=== PATIENT | female | born 1945 | race Caucasian/White ===

== ENCOUNTER 2019-10-21 16:04 | Inpatient (IN) | payer MEDICARE, OTHER ==
[~2019-10-21] VITALS: Ht 149.9 cm; Wt 68.5 kg
[2019-10-21] MEDS ORDERED: SODIUM CHLORIDE 0.9% 1,000 ML IV ONE (17:15)
[2019-10-21 17:35] LABS: BASOPHILS % 0.2 % (0.0-2.0); EOSINOPHILS % 0.1 % (0.0-5.0); LYMPHOCYTES % 18.6 % (20.0-50.0); MEAN CORPUSCULAR HEMOGLOBIN 31.5 pg (28.0-32.0); MEAN CORPUSCULAR VOLUME 92.3 fL (81.0-99.0); MEAN PLATELET VOLUME 9.2 fl (7.4-10.4); MONOCYTES % 4.7 % (2.0-8.0); NEUTROPHILS % 76.4 % (40.0-76.0); PLATELET 264 x1000/uL (130-400); RED BLOOD CELL COUNT 2.13 mill/uL (4.2-5.4); RED CELL DISTRIBUTION WIDTH 15.8 % (11.6-14.6)
[2019-10-21 17:39] LABS: HEMATOCRIT. 19.7 % (36.0-48.0); HEMOGLOBIN. 6.7 g/dL (12.0-16.0)
[2019-10-21 17:41] LABS: INR 1.8; PROTHROMBIN TIME 19.5 sec (9.6-11.0)
[2019-10-21 17:44] LABS: CHLORIDE 91 mEq/L (98-107)
[2019-10-21] MEDS ORDERED: SODIUM CHLORIDE 0.9% 1000ML BAG (SEPSIS BOLUS) IV ONE (18:00)
[2019-10-21] MEDS ORDERED: POTASSIUM CHLORIDE 20MEQ TABLET SR PO ONE (18:00)
[2019-10-21] MEDS ORDERED: PIPERACILLIN/TAZ 3.375G PREMIX 50 ML IV ONE (18:00)
[2019-10-21] MEDS ORDERED: KCL 10MEQ/50ML PREMIX 50 ML IV ONE (18:00)
[2019-10-21 18:16] LABS: CLARITY URINE CLEAR (CLEAR); COLOR URINE YELLOW (YELLOW); KETONES URINE NEGATIVE (NEGATIVE); LEUKOCYTE ESTERASE URINE NEGATIVE (NEGATIVE); NITRITE URINE NEGATIVE (NEGATIVE); OCCULT BLOOD URINE NEGATIVE (NEGATIVE); PROTEIN URINE NEGATIVE (NEGATIVE); SPECIFIC GRAVITY URINE 1.012 (1.005-1.030); UROBILINOGEN URINE 0.2 E.U./dL (0.2-1.0)
[2019-10-21] MEDS ORDERED: MAGNESIUM/ALUMINUM HYDROXIDE/SIMETHICONE 30ML UDC PO PRN (19:30)
[2019-10-21] MEDS ORDERED: GUAIFENESIN 200MG/10ML SUGAR FREE UDC PO PRN (19:30)
[2019-10-21] MEDS ORDERED: NITROGLYCERIN 0.4MG TABLET SL SL PRN (19:30)
[2019-10-21] MEDS ORDERED: IPRATROPIUM/ALBUTEROL 0.5-3(2.5)MG/3ML NEB NEB PRN (19:30)
[2019-10-21] MEDS ORDERED: DOCUSATE SODIUM 100MG CAPSULE PO PRN (19:30)
[2019-10-21] MEDS ORDERED: MAGNESIUM 1 G PREMIX 100 ML IV ONE (20:15)
[2019-10-21 20:55] LABS: FOLIC ACID (FOLATE) SERUM 19.3 ng/mL (>5.38)
[2019-10-21] MEDS ORDERED: POTASSIUM CHLORIDE 20MEQ TABLET SR PO NR (21:39)
[2019-10-21 22:50] VITALS: BP 106/62
[2019-10-21] MEDS ORDERED: MAGNESIUM 4 G PREMIX 100 ML IV NR (23:00)
[2019-10-21] MEDS ORDERED: PHYTONADIONE 10 MG in DEXTROSE 5% WATER 50 ML IV NR (23:00)
[2019-10-21] MEDS ORDERED: METRONIDAZOLE 500 MG PREMIX 100 ML IV SCH (23:00)
[2019-10-21] MEDS ORDERED: KCL 20MEQ/100ML PREMIX 100 ML IV NR (23:00)
[2019-10-21] MEDS ORDERED: PANTOPRAZOLE 80 MG in SODIUM CHLORIDE 0.9% 100 ML IV SCH (23:00)
[2019-10-21 23:10] VITALS: BP 106/62
[2019-10-22] VITALS (19 sets, daily range): BP systolic 113–166; BP diastolic 42–103
[2019-10-22] MEDS ORDERED: LEVOFLOXACIN 500MG PREMIX 100 ML IV SCH
[2019-10-22] MEDS: ASCORBIC ACID 500 MG TABLET PO SCH ×3 (01:44→21:26)
[2019-10-22] MEDS: ZOLPIDEM TARTRATE 5MG TABLET PO PRN ×2 (01:44→21:26)
[2019-10-22] MEDS: PANTOPRAZOLE 80 MG in SODIUM CHLORIDE 0.9% 100 ML IV SCH ×2 (01:53→11:00)
[2019-10-22] MEDS: OCTREOTIDE 1,000 MCG in SODIUM CHLORIDE 0.9% 98 ML IV SCH (01:55)
[2019-10-22] MEDS: DEXT 5%/0.9% NACL KCL 20MEQ/L 1,000 ML IV SCH ×2 (02:00→19:00)
[2019-10-22] MEDS: ACETAMINOPHEN 325MG TABLET PO PRN (03:14)
[2019-10-22 06:12] LABS: CHLORIDE 100 mEq/L (98-107)
[2019-10-22 06:28] LABS: BASOPHILS % 0.2 % (0.0-2.0); EOSINOPHILS % 0.6 % (0.0-5.0); HEMATOCRIT. 23.8 % (36.0-48.0); HEMOGLOBIN. 8.2 g/dL (12.0-16.0); LYMPHOCYTES % 17.3 % (20.0-50.0); MEAN CORPUSCULAR HEMOGLOBIN 30.5 pg (28.0-32.0); MEAN CORPUSCULAR VOLUME 88.9 fL (81.0-99.0); MEAN PLATELET VOLUME 9.4 fl (7.4-10.4); MONOCYTES % 6.3 % (2.0-8.0); NEUTROPHILS % 75.6 % (40.0-76.0); PLATELET 195 x1000/uL (130-400); RED BLOOD CELL COUNT 2.67 mill/uL (4.2-5.4); RED CELL DISTRIBUTION WIDTH 16.3 % (11.6-14.6)
[2019-10-22 06:31] LABS: PHOSPHORUS 3.2 mg/dL (2.5-4.9)
[2019-10-22] MEDS ORDERED: METF-816 MT (08:00)
[2019-10-22] MEDS ORDERED: TLXL5 MT (08:00)
[2019-10-22] MEDS ORDERED: LOSA100T32 PO (08:00)
[2019-10-22] MEDS ORDERED: METF500T MT (08:00)
[2019-10-22] MEDS ORDERED: CARV25TA47 PO (08:00)
[2019-10-22] MEDS ORDERED: OMEP10CA5 MT (08:00)
[2019-10-22] MEDS ORDERED: LEVO100T PO (08:00)
[2019-10-22] MEDS ORDERED: AMLO1ORA PO (08:00)
[2019-10-22] MEDS ORDERED: PARO25TA15 MT (08:00)
[2019-10-22] MEDS ORDERED: LOVA10TA54 MT (08:00)
[2019-10-22] MEDS ORDERED: ALBU90AE INH (08:00)
[2019-10-22] MEDS ORDERED: HYDR25TA MT (08:00)
[2019-10-22] MEDS ORDERED: CLON1TAB12 MT (08:00)
[2019-10-22] MEDS ORDERED: CEFTRIAXONE 1 G PREMIX 50 ML IV SCH (09:00)
[2019-10-22] MEDS ORDERED: POTASSIUM CHLORIDE IV NR (09:00)
[2019-10-22] MEDS ORDERED: WATER IV NR (09:00)
[2019-10-22] MEDS ORDERED: DEXTROSE 5% IV NR (09:00)
[2019-10-22] MEDS: METRONIDAZOLE 500 MG PREMIX 100 ML IV SCH ×2 (09:55→18:24)
[2019-10-22 12:25] LABS: HEMATOCRIT 26.8 % (36.0-48.0); HEMOGLOBIN 9.4 g/dL (12.0-16.0)
[2019-10-22] MEDS: FERROUS SULFATE 325MG TABLET PO SCH (14:00)
[2019-10-22] MEDS: LEVOFLOXACIN 250MG PREMIX 50 ML IV SCH (21:25)
[2019-10-22] MEDS: PANTOPRAZOLE SODIUM 40 MG/VIAL IV SCH (21:25)
[2019-10-23] VITALS (13 sets, daily range): BP systolic 128–163; BP diastolic 62–87
[2019-10-23] MEDS: METRONIDAZOLE 500 MG PREMIX 100 ML IV SCH ×3 (02:06→17:28)
[2019-10-23] MEDS: DEXT 5%/0.9% NACL KCL 20MEQ/L 1,000 ML IV SCH (05:47)
[2019-10-23 06:42] LABS: BASOPHILS % 0.5 % (0.0-2.0); EOSINOPHILS % 3.6 % (0.0-5.0); HEMOGLOBIN. 9.4 g/dL (12.0-16.0); LYMPHOCYTES % 27.8 % (20.0-50.0); MEAN CORPUSCULAR HEMOGLOBIN 31.8 pg (28.0-32.0); MEAN CORPUSCULAR VOLUME 91.7 fL (81.0-99.0); MEAN PLATELET VOLUME 8.6 fl (7.4-10.4); MONOCYTES % 8.7 % (2.0-8.0); NEUTROPHILS % 59.4 % (40.0-76.0); PLATELET 165 x1000/uL (130-400); RED BLOOD CELL COUNT 2.94 mill/uL (4.2-5.4); RED CELL DISTRIBUTION WIDTH 16.4 % (11.6-14.6)
[2019-10-23 06:48] LABS: CHLORIDE 113 mEq/L (98-107)
[2019-10-23 06:58] LABS: PHOSPHORUS 1.5 mg/dL (2.5-4.9)
[2019-10-23] MEDS: PANTOPRAZOLE SODIUM 40 MG/VIAL IV SCH ×2 (09:01→20:05)
[2019-10-23] MEDS: CEFTRIAXONE 1 G PREMIX 50 ML IV SCH (09:02)
[2019-10-23] MEDS: ASCORBIC ACID 500 MG TABLET PO SCH ×2 (09:02→20:05)
[2019-10-23] MEDS: FERROUS SULFATE 325MG TABLET PO SCH (09:02)
[2019-10-23] MEDS ORDERED: LACTULOSE 20G/30ML UDC PO SCH (14:00)
[2019-10-23] MEDS ORDERED: LACTULOSE 20G/30ML UDC PO PRN (14:00)
[2019-10-23] MEDS ORDERED: POTASSIUM PHOS,M-BASIC-D-BASIC 15 MMOL in DEXT 5% WATER 245 ML IV NR (14:00)
[2019-10-23] MEDS: ZOLPIDEM TARTRATE 5MG TABLET PO PRN (20:05)
[2019-10-23] MEDS: LEVOFLOXACIN 250MG PREMIX 50 ML IV SCH (20:06)
[2019-10-23] MEDS: OCTREOTIDE 1,000 MCG in SODIUM CHLORIDE 0.9% 98 ML IV SCH (20:06)
[2019-10-23 21:16] LABS: INR 1.1
[2019-10-23 21:20] LABS: CHLORIDE 114 mEq/L (98-107)
[2019-10-23] MEDS: DIPHENHYDRAMINE 50MG/ML VIAL IV PRN (22:10)
[2019-10-24] VITALS (12 sets, daily range): BP systolic 150–176; BP diastolic 34–101
[2019-10-24] MEDS: DEXT 5%/0.9% NACL KCL 20MEQ/L 1,000 ML IV SCH ×2 (00:19→09:07)
[2019-10-24] MEDS: METRONIDAZOLE 500 MG PREMIX 100 ML IV SCH ×4 (01:07→18:29)
[2019-10-24] MEDS: DIPHENHYDRAMINE 50MG/ML VIAL IV PRN ×2 (03:26→09:07)
[2019-10-24] MEDS: ONDANSETRON HCL 4MG/2ML INJ IV PRN ×2 (03:26→09:07)
[2019-10-24 06:06] LABS: CHLORIDE 115 mEq/L (98-107)
[2019-10-24 06:11] LABS: BASOPHILS % 0.5 % (0.0-2.0); EOSINOPHILS % 2.4 % (0.0-5.0); HEMATOCRIT. 28.8 % (36.0-48.0); HEMOGLOBIN. 9.9 g/dL (12.0-16.0); LYMPHOCYTES % 27.2 % (20.0-50.0); MEAN CORPUSCULAR HEMOGLOBIN 31.7 pg (28.0-32.0); MEAN CORPUSCULAR VOLUME 92.2 fL (81.0-99.0); MEAN PLATELET VOLUME 7.9 fl (7.4-10.4); MONOCYTES % 9.7 % (2.0-8.0); NEUTROPHILS % 60.2 % (40.0-76.0); PLATELET 197 x1000/uL (130-400); RED BLOOD CELL COUNT 3.12 mill/uL (4.2-5.4); RED CELL DISTRIBUTION WIDTH 16.6 % (11.6-14.6)
[2019-10-24] MEDS: FERROUS SULFATE 325MG TABLET PO SCH (09:01)
[2019-10-24] MEDS: ASCORBIC ACID 500 MG TABLET PO SCH ×2 (09:01→20:20)
[2019-10-24] MEDS: ACETAMINOPHEN 325MG TABLET PO PRN (09:07)
[2019-10-24] MEDS: PANTOPRAZOLE SODIUM 40 MG/VIAL IV SCH ×2 (09:08→20:21)
[2019-10-24] MEDS: CEFTRIAXONE 1 G PREMIX 50 ML IV SCH (09:08)
[2019-10-24] MEDS ORDERED: POTASSIUM CHLORIDE 20MEQ TABLET SR PO NR (11:00)
[2019-10-24] MEDS ORDERED: SORBITOL 70% SOLN 30ML PO NR ×2 (17:00→21:00)
[2019-10-24] MEDS: LEVOFLOXACIN 250MG PREMIX 50 ML IV SCH (20:11)
[2019-10-24] MEDS: CLONIDINE 0.1MG TABLET PO PRN (20:41)
[2019-10-24] MEDS ORDERED: PANTOPRAZOLE SODIUM 40 MG/VIAL IV SCH (21:00)
[2019-10-25] VITALS (16 sets, daily range): BP systolic 107–195; BP diastolic 51–102
[2019-10-25] MEDS: METRONIDAZOLE 500 MG PREMIX 100 ML IV SCH ×3 (02:25→18:22)
[2019-10-25 06:23] LABS: INR 1.1; PARTIAL THROMBOPLASTIN TIME 25.1 sec (23.4-31.0); PROTHROMBIN TIME 11.7 sec (9.6-11.0)
[2019-10-25 06:36] LABS: BASOPHILS % 0.6 % (0.0-2.0); EOSINOPHILS % 1.2 % (0.0-5.0); HEMATOCRIT. 31.8 % (36.0-48.0); HEMOGLOBIN. 10.9 g/dL (12.0-16.0); MEAN CORPUSCULAR HEMOGLOBIN 31.5 pg (28.0-32.0); MEAN PLATELET VOLUME 7.8 fl (7.4-10.4); MONOCYTES % 8.8 % (2.0-8.0); NEUTROPHILS % 76.4 % (40.0-76.0); PLATELET 228 x1000/uL (130-400); RED BLOOD CELL COUNT 3.46 mill/uL (4.2-5.4); RED CELL DISTRIBUTION WIDTH 16.9 % (11.6-14.6)
[2019-10-25] MEDS ORDERED: NA PHOS,M-B/NA PHOS,DI-BA ENEMA 118ML PR NR (08:00)
[2019-10-25] MEDS: CEFTRIAXONE 1 G PREMIX 50 ML IV SCH (08:51)
[2019-10-25] MEDS: ASCORBIC ACID 500 MG TABLET PO SCH ×2 (09:00→14:58)
[2019-10-25] MEDS: FERROUS SULFATE 325MG TABLET PO SCH ×2 (09:00→14:58)
[2019-10-25] MEDS: PANTOPRAZOLE SODIUM 40 MG/VIAL IV SCH (09:33)
[2019-10-25] MEDS ORDERED: AMLODIPINE 5MG TABLET PO SCH (11:00)
[2019-10-25] MEDS ORDERED: HYDRALAZINE HCL 50MG TABLET PO SCH (11:00)
[2019-10-25] MEDS: CLONIDINE 0.1MG TABLET PO PRN (11:30)
[2019-10-25] MEDS ORDERED: MIDAZOLAM HCL 5 MG/5 ML VIAL ONE ×2 (11:46→12:15)
[2019-10-25] MEDS ORDERED: FENTANYL CITRATE/PF 50MCG/ML 2ML VIAL ONE (11:46)
[2019-10-25] MEDS ORDERED: FENTANYL CITRATE/PF 50MCG/ML 2ML VIAL IV PRN (11:51)
[2019-10-25] MEDS ORDERED: MIDAZOLAM HCL 2 MG/2 ML VIAL IV PRN (11:52)
[2019-10-25] MEDS: OCTREOTIDE 1,000 MCG in SODIUM CHLORIDE 0.9% 98 ML IV SCH (14:52)
== END 2019-10-25 19:33 | disposition home or self-care (01) | DRG 377 ==
LOC: ER 16:04 → 5EST 19:05 → EDBD 19:05 → EDBEDREQTM 19:11 → EDBEDREQSVC 19:11 → EDBEDREQ 19:11 → ENRESERV 20:23
PROVIDERS: ADMIT Internal Medicine; ATTEND Internal Medicine
PROC: 30233N1 Transfusion of Nonautologous Red Blood Cells into Peripheral Vein, Percutaneous Approach (ICD-10-PCS; 2019-10-21)
PROC: 30233K1 Transfusion of Nonautologous Frozen Plasma into Peripheral Vein, Percutaneous Approach (ICD-10-PCS; 2019-10-22)
PROC: 0DB78ZX Excision of Stomach, Pylorus, Via Natural or Artificial Opening Endoscopic, Diagnostic (ICD-10-PCS; principal; 2019-10-25)
PROC: 0DJD8ZZ Inspection of Lower Intestinal Tract, Via Natural or Artificial Opening Endoscopic (ICD-10-PCS; 2019-10-25)
DX: K29.71 Gastritis, unspecified, with bleeding (principal); I21.4 Non-ST elevation (NSTEMI) myocardial infarction; G92 Toxic encephalopathy; E43 Unspecified severe protein-calorie malnutrition; E87.1 Hypo-osmolality and hyponatremia; D62 Acute posthemorrhagic anemia; E87.2 Acidosis; D68.9 Coagulation defect, unspecified; K57.31 Diverticulosis of large intestine without perforation or abscess with bleeding; E11.9 Type 2 diabetes mellitus without complications; M48.07 Spinal stenosis, lumbosacral region; E83.51 Hypocalcemia; I10 Essential (primary) hypertension; K55.20 Angiodysplasia of colon without hemorrhage; E87.6 Hypokalemia; F41.9 Anxiety disorder, unspecified; E03.9 Hypothyroidism, unspecified; K21.9 Gastro-esophageal reflux disease without esophagitis; E87.8 Other disorders of electrolyte and fluid balance, not elsewhere classified; E83.42 Hypomagnesemia; K74.60 Unspecified cirrhosis of liver; E78.5 Hyperlipidemia, unspecified; K64.8 Other hemorrhoids; K44.9 Diaphragmatic hernia without obstruction or gangrene; K56.41 Fecal impaction; N28.1 Cyst of kidney, acquired; Z87.11 Personal history of peptic ulcer disease; Z90.49 Acquired absence of other specified parts of digestive tract; Z68.30 Body mass index [BMI] 30.0-30.9, adult
CPT/HCPCS: 36415; 71045; 74018; 74176; 76700; 80048; 80053; 80061; 80076; 81003; 82140; 82248; 82270; 82607; 82746; 83036; 83540; 83550; 83605; 83735; 83880; 84100; 84145; 84443; 84484; 85014; 85018; 85025; 86850; 86900; 86920; 86927; 88305; 88313; 93005; 93306; 93970; 99152; 99153; 99291; C9113; J0696; J1200; J1956; J2250; J2354; J2405; J2543; J3010; J3430; J3475; J3480; J3490; J7030; J7050; J7060; J7070; P9016; P9017; G0500

== ENCOUNTER 2021-10-28 10:54 | Inpatient (IN) | payer OTHER ==
[~2021-10-28] VITALS: Ht 160 cm; Wt 61.7 kg
[~2021-10-28 10:54] MED LIST: ALBU90AE INH; AMLO1ORA PO; CARV25TA47 PO; CLON1TAB12 MT; HYDR25TA MT; LEVO100T PO; LOVA10TA54 MT; METF-874 MT; METF500T MT; OMEP10CA5 MT; PARO25TA15 MT; TLXL5 MT
[2021-10-28] MEDS ORDERED: SODIUM CHLORIDE 0.9% 500 ML IV ONE (11:15)
[2021-10-28 12:23] LABS: BASOPHILS % 0.4 % (0.0-2.0); EOSINOPHILS % 3.3 % (0.0-5.0); HEMATOCRIT. 23.7 % (36.0-48.0); HEMOGLOBIN. 8.3 g/dL (12.0-16.0); LYMPHOCYTES % 15.4 % (20.0-50.0); MEAN CORPUSCULAR HEMOGLOBIN 35.9 pg (28.0-32.0); MEAN CORPUSCULAR VOLUME 102.3 fL (81.0-99.0); MEAN PLATELET VOLUME 7.4 fl (7.4-10.4); MONOCYTES % 7.9 % (2.0-8.0); PLATELET 170 x1000/uL (130-400); RED BLOOD CELL COUNT 2.32 mill/uL (4.2-5.4); RED CELL DISTRIBUTION WIDTH 14.4 % (11.6-14.6)
[2021-10-28 12:49] LABS: CHLORIDE 91 mEq/L (98-107)
[2021-10-28] MEDS ORDERED: POTASSIUM CHLORIDE INJ 40 MEQ in DEXT 5% WATER 500 ML IV ONE (13:15)
[2021-10-28] MEDS ORDERED: POTASSIUM CHLORIDE 20MEQ TABLET SR PO ONE (13:15)
[2021-10-28] MEDS: KCL 20MEQ/100ML X 2 FOR TOTAL KCL 40MEQ/200ML IV SCH ×2 (15:59→19:45)
[2021-10-28] MEDS ORDERED: MAGNESIUM/ALUMINUM HYDROXIDE/SIMETHICONE 30ML UDC PO PRN (16:00)
[2021-10-28] MEDS ORDERED: DOCUSATE SODIUM 100MG CAPSULE PO PRN (16:00)
[2021-10-28] MEDS ORDERED: DEXTROSE 50% WATER 50ML SYRINGE IV PRN (16:00)
[2021-10-28] MEDS ORDERED: GUAIFENESIN 200MG/10ML SUGAR FREE UDC PO PRN (16:00)
[2021-10-28] MEDS ORDERED: CLONIDINE 0.1MG TABLET PO PRN (16:00)
[2021-10-28] MEDS ORDERED: NA PHOS,M-B/NA PHOS,DI-BA ENEMA 118ML PR PRN (16:00)
[2021-10-28] MEDS ORDERED: IPRATROPIUM/ALBUTEROL 0.5-3(2.5)MG/3ML NEB NEB PRN (16:00)
[2021-10-28] MEDS: PANTOPRAZOLE SODIUM 40 MG/VIAL IV SCH (16:30)
[2021-10-28 16:34] LABS: BG BASE EXCESS 16.3 mmol/L (-2.0-2.0); BG CARBOXYHEMOGLOBIN 1.4 % (0.5-1.5); BG DEOXYHEMOGLOBIN 6.8 % (0.0-5.0); BG FRACTION INSPIRED OXYGEN 21; BG HCO3 ACT 41.3 mmol/L (22.0-26.0); BG METHEMOGLOBIN 0.2 % (0.0-1.5); BG OXYGEN SATURATION 93.1 % (92.0-98.5); BG OXYHEMOGLOBIN 91.6 % (94.0-97.0); BG PCO2 54.2 mmHg (35.0-45.0); BG PO2 64.3 mmHg (75.0-100.0); BG SAMPLE SITE RIGHT RADIAL; BG TOTAL HEMOGLOBIN 8.6 g/dL (12.0-18.0); BG VENT MODE ROOM AIR
[2021-10-28] MEDS ORDERED: ATROPINE SULFATE 1MG/10ML SYR IV PRN (16:45)
[2021-10-28 16:54] LABS: HEMATOCRIT 21.4 % (36.0-48.0); HEMOGLOBIN 7.5 g/dL (12.0-16.0)
[2021-10-28] MEDS: BLOOD SUGAR DIAGNOSTIC STRIP TEST SCH ×2 (17:00→22:27)
[2021-10-28 17:06] LABS: INR 1.5; PROTHROMBIN TIME 15.6 sec (9.6-11.0)
[2021-10-28] MEDS ORDERED: PIPERACILLIN/TAZOBACTAM 3.375 G in DEXTROSE 5% WATER 50 ML IV SCH (18:00)
[2021-10-28] MEDS ORDERED: FUROSEMIDE 40MG/4ML VIAL IVP ONE (18:15)
[2021-10-28 18:18] LABS: CLARITY URINE CLEAR (CLEAR); COLOR URINE YELLOW (YELLOW); KETONES URINE NEGATIVE (NEGATIVE); LEUKOCYTE ESTERASE URINE 3+ (NEGATIVE); NITRITE URINE NEGATIVE (NEGATIVE); OCCULT BLOOD URINE TRACE (NEGATIVE); PH URINE 8.5 (4.5-8.0); PROTEIN URINE 2+ (NEGATIVE); SPECIFIC GRAVITY URINE 1.012 (1.005-1.030)
[2021-10-28] MEDS: INSULIN LISPRO 100 UNITS/ML SUBCUT SCH (18:20)
[2021-10-28 18:29] LABS: *AMPHETAMINES SCREEN URINE NEGATIVE (NEGATIVE); *BARBITURATES SCREEN URINE NEGATIVE (NEGATIVE); *BENZODIAZEPINES SCREEN URINE NEGATIVE (NEGATIVE); *COCAINE SCREEN URINE NEGATIVE (NEGATIVE); METHADONE URINE SCREEN NEGATIVE (NEGATIVE)
[2021-10-28 18:30] LABS: CANNABINOID URINE SCREEN NEGATIVE (NEGATIVE); OPIATES URINE SCREEN NEGATIVE (NEGATIVE); PHENCYCLIDINE URINE SCREEN NEGATIVE (NEGATIVE)
[2021-10-28 21:56] LABS: CREATINE KINASE MB FRACTION 1.9 ng/mL (0.5-3.6)
[2021-10-28 23:35] VITALS: BP 165/72
[2021-10-29] VITALS (10 sets, daily range): BP systolic 131–162; BP diastolic 61–101
[2021-10-29 06:19] LABS: BASOPHILS % 0.4 % (0.0-2.0); EOSINOPHILS % 3.8 % (0.0-5.0); HEMOGLOBIN. 8.2 g/dL (12.0-16.0); LYMPHOCYTES % 11.2 % (20.0-50.0); MEAN CORPUSCULAR HEMOGLOBIN 36.8 pg (28.0-32.0); MEAN CORPUSCULAR VOLUME 103.8 fL (81.0-99.0); MONOCYTES % 7.9 % (2.0-8.0); NEUTROPHILS % 76.7 % (40.0-76.0); PLATELET 187 x1000/uL (130-400); RED BLOOD CELL COUNT 2.22 mill/uL (4.2-5.4); RED CELL DISTRIBUTION WIDTH 14.4 % (11.6-14.6)
[2021-10-29] MEDS: ONDANSETRON HCL 4MG/2ML INJ IV PRN ×2 (06:41→22:06)
[2021-10-29] MEDS: LORAZEPAM 0.5MG TABLET PO PRN ×2 (06:41→22:34)
[2021-10-29] MEDS: HYDROCODONE/ACETAMINOPHEN 5/325MG TABLET PO PRN (06:42)
[2021-10-29] MEDS: INSULIN LISPRO 100 UNITS/ML SUBCUT SCH ×4 (08:00→21:00)
[2021-10-29 08:19] LABS: CREATINE KINASE MB FRACTION 1.8 ng/mL (0.5-3.6)
[2021-10-29] MEDS: BLOOD SUGAR DIAGNOSTIC STRIP TEST SCH ×4 (08:28→21:31)
[2021-10-29] MEDS ORDERED: LIDOCAINE HCL 1% 10 MG/ML 10ML VIAL ONE (09:46)
[2021-10-29] MEDS ORDERED: SODIUM BICARBONATE 4% (2.4MEQ) 5ML VIAL IV ONE (09:46)
[2021-10-29] MEDS: PANTOPRAZOLE SODIUM 40 MG/VIAL IV SCH (10:43)
[2021-10-29] MEDS: PIPERACILLIN/TAZOBACTAM 3.375 G in DEXTROSE 5% WATER 50 ML IV SCH ×2 (10:43→21:32)
[2021-10-29] MEDS: SPIRONOLACTONE 25MG TABLET PO SCH (17:01)
[2021-10-29] MEDS: FUROSEMIDE 40MG/4ML VIAL IVP SCH (17:01)
[2021-10-29] MEDS ORDERED: POTASSIUM CHLORIDE 20MEQ TABLET SR PO NR (22:30)
[2021-10-30] VITALS (9 sets, daily range): BP systolic 103–182; BP diastolic 57–110
[2021-10-30] MEDS ORDERED: MAGNESIUM 1 G PREMIX 100 ML IV ONE
[2021-10-30 06:21] LABS: CHLORIDE 94 mEq/L (98-107)
[2021-10-30 06:28] LABS: BASOPHILS % 0.1 % (0.0-2.0); EOSINOPHILS % 2.8 % (0.0-5.0); HEMATOCRIT. 21.7 % (36.0-48.0); HEMOGLOBIN. 7.6 g/dL (12.0-16.0); MEAN CORPUSCULAR HEMOGLOBIN 35.8 pg (28.0-32.0); MEAN CORPUSCULAR VOLUME 102.7 fL (81.0-99.0); MEAN PLATELET VOLUME 7.6 fl (7.4-10.4); MONOCYTES % 6.6 % (2.0-8.0); NEUTROPHILS % 80.5 % (40.0-76.0); PLATELET 210 x1000/uL (130-400); RED BLOOD CELL COUNT 2.11 mill/uL (4.2-5.4); RED CELL DISTRIBUTION WIDTH 14.7 % (11.6-14.6)
[2021-10-30] MEDS ORDERED: POTASSIUM CHLORIDE 20MEQ TABLET SR PO SCH ×2 (07:00→22:45)
[2021-10-30] MEDS: BLOOD SUGAR DIAGNOSTIC STRIP TEST SCH ×4 (07:30→20:40)
[2021-10-30] MEDS: INSULIN LISPRO 100 UNITS/ML SUBCUT SCH ×4 (08:00→20:44)
[2021-10-30] MEDS: PANTOPRAZOLE SODIUM 40 MG/VIAL IV SCH (08:29)
[2021-10-30] MEDS: FUROSEMIDE 40MG/4ML VIAL IVP SCH (08:29)
[2021-10-30] MEDS: PIPERACILLIN/TAZOBACTAM 3.375 G in DEXTROSE 5% WATER 50 ML IV SCH ×2 (08:29→20:38)
[2021-10-30] MEDS: SPIRONOLACTONE 25MG TABLET PO SCH (12:02)
[2021-10-30] MEDS: HYDRALAZINE 20MG/ML VIAL IV PRN (16:10)
[2021-10-30] MEDS: HYDROCODONE/ACETAMINOPHEN 5/325MG TABLET PO PRN (16:14)
[2021-10-31] VITALS (18 sets, daily range): BP systolic 96–197; BP diastolic 32–101
[2021-10-31] MEDS: HYDRALAZINE 20MG/ML VIAL IV PRN ×3 (00:49→14:07)
[2021-10-31] MEDS ORDERED: HYDRALAZINE 20MG/ML VIAL IV SCH (04:40)
[2021-10-31] MEDS ORDERED: AMLODIPINE 10MG TABLET PO SCH (04:45)
[2021-10-31 06:29] LABS: BASOPHILS % 0.3 % (0.0-2.0); LYMPHOCYTES % 13.5 % (20.0-50.0); MEAN CORPUSCULAR HEMOGLOBIN 35.7 pg (28.0-32.0); MEAN CORPUSCULAR VOLUME 103.6 fL (81.0-99.0); MONOCYTES % 8.5 % (2.0-8.0); NEUTROPHILS % 75.7 % (40.0-76.0); PLATELET 198 x1000/uL (130-400); RED BLOOD CELL COUNT 1.73 mill/uL (4.2-5.4)
[2021-10-31 06:42] LABS: HEMOGLOBIN. 6.2 g/dL (12.0-16.0)
[2021-10-31 06:43] LABS: HEMATOCRIT. 17.9 % (36.0-48.0)
[2021-10-31 06:46] LABS: CHLORIDE 96 mEq/L (98-107)
[2021-10-31] MEDS: BLOOD SUGAR DIAGNOSTIC STRIP TEST SCH ×4 (07:30→20:52)
[2021-10-31] MEDS: INSULIN LISPRO 100 UNITS/ML SUBCUT SCH ×4 (08:00→20:52)
[2021-10-31] MEDS ORDERED: LIDOCAINE HCL 1% 10 MG/ML 10ML VIAL ONE (08:29)
[2021-10-31] MEDS: FUROSEMIDE 40MG/4ML VIAL IVP SCH (10:38)
[2021-10-31] MEDS: PIPERACILLIN/TAZOBACTAM 3.375 G in DEXTROSE 5% WATER 50 ML IV SCH ×2 (10:38→20:50)
[2021-10-31] MEDS: SPIRONOLACTONE 25MG TABLET PO SCH (10:39)
[2021-10-31] MEDS ORDERED: CLONIDINE 0.1MG TABLET PO PRN (10:45)
[2021-10-31] MEDS ORDERED: METOPROLOL TARTRATE 25MG TABLET PO NR (10:45)
[2021-10-31] MEDS ORDERED: CARVEDILOL 6.25 MG TABLET PO NR (11:00)
[2021-10-31] MEDS: ISOSORBIDE DINITRATE 20MG TABLET PO SCH (18:37)
[2021-10-31 19:41] LABS: HEMOGLOBIN 9.6 g/dL (12.0-16.0)
[2021-10-31 19:48] LABS: TOTAL IRON BINDING CAPACITY 156 ug/dL (250-450)
[2021-10-31] MEDS ORDERED: NALOXONE HCL 0.4MG/ML VIAL IV PRN (20:15)
[2021-10-31 20:17] LABS: FOLIC ACID (FOLATE) SERUM 4.8 ng/mL (>5.38)
[2021-10-31] MEDS: PANTOPRAZOLE SODIUM 40 MG/VIAL IV SCH (20:49)
[2021-10-31] MEDS: CARVEDILOL 6.25 MG TABLET PO SCH (20:52)
[2021-10-31] MEDS ORDERED: METOPROLOL TARTRATE 25MG TABLET PO SCH (21:00)
[2021-10-31] MEDS: HYDROCODONE/ACETAMINOPHEN 5/325MG TABLET PO PRN (21:40)
[2021-11-01] VITALS (7 sets, daily range): BP systolic 159–188; BP diastolic 74–90
[2021-11-01 00:53] LABS: HEMATOCRIT 25.3 % (36.0-48.0); HEMOGLOBIN 8.6 g/dL (12.0-16.0)
[2021-11-01] MEDS: HYDRALAZINE 20MG/ML VIAL IV PRN ×2 (02:13→09:10)
[2021-11-01 05:20] LABS: BASOPHILS % 0.2 % (0.0-2.0); EOSINOPHILS % 0.8 % (0.0-5.0); HEMATOCRIT. 25.4 % (36.0-48.0); HEMOGLOBIN. 8.7 g/dL (12.0-16.0); LYMPHOCYTES % 10.1 % (20.0-50.0); MEAN CORPUSCULAR VOLUME 93.3 fL (81.0-99.0); MEAN PLATELET VOLUME 7.6 fl (7.4-10.4); MONOCYTES % 7.3 % (2.0-8.0); NEUTROPHILS % 81.6 % (40.0-76.0); PLATELET 131 x1000/uL (130-400); RED BLOOD CELL COUNT 2.73 mill/uL (4.2-5.4); RED CELL DISTRIBUTION WIDTH 22.3 % (11.6-14.6)
[2021-11-01 05:41] LABS: INR 1.5; PROTHROMBIN TIME 15.2 sec (9.6-11.0)
[2021-11-01 06:09] LABS: CHLORIDE 99 mEq/L (98-107)
[2021-11-01] MEDS: BLOOD SUGAR DIAGNOSTIC STRIP TEST SCH ×4 (07:30→21:32)
[2021-11-01] MEDS: INSULIN LISPRO 100 UNITS/ML SUBCUT SCH ×4 (08:00→21:00)
[2021-11-01] MEDS: ISOSORBIDE DINITRATE 20MG TABLET PO SCH ×2 (08:57→18:39)
[2021-11-01] MEDS: AMLODIPINE 5MG TABLET PO SCH ×2 (08:57→21:32)
[2021-11-01] MEDS: CARVEDILOL 6.25 MG TABLET PO SCH ×2 (08:58→21:31)
[2021-11-01] MEDS: SPIRONOLACTONE 25MG TABLET PO SCH (08:58)
[2021-11-01] MEDS: FUROSEMIDE 40MG/4ML VIAL IVP SCH (09:09)
[2021-11-01] MEDS: PANTOPRAZOLE SODIUM 40 MG/VIAL IV SCH ×2 (09:09→21:30)
[2021-11-01] MEDS: DIPHENHYDRAMINE 50MG/ML VIAL IV PRN ×2 (09:10→19:19)
[2021-11-01] MEDS: PIPERACILLIN/TAZOBACTAM 3.375 G in DEXTROSE 5% WATER 50 ML IV SCH ×2 (09:20→21:41)
[2021-11-01 13:54] LABS: HEMATOCRIT 24.3 % (36.0-48.0); HEMOGLOBIN 8.8 g/dL (12.0-16.0)
[2021-11-01] MEDS ORDERED: POTASSIUM CHLORIDE INJ 40 MEQ in DEXT 5% WATER 250 ML IV ONE (16:45)
[2021-11-01] MEDS ORDERED: DEXT 5%/0.45% NACL 1000ML 1,000 ML IV SCH (16:45)
[2021-11-01 17:16] LABS: BG CARBOXYHEMOGLOBIN 0.3 % (0.5-1.5); BG DEOXYHEMOGLOBIN 7.2 % (0.0-5.0); BG FRACTION INSPIRED OXYGEN 21; BG HCO3 ACT 35.9 mmol/L (22.0-26.0); BG METHEMOGLOBIN 0.2 % (0.0-1.5); BG OXYGEN SATURATION 92.8 % (92.0-98.5); BG OXYHEMOGLOBIN 92.3 % (94.0-97.0); BG PCO2 49.7 mmHg (35.0-45.0); BG PH 7.477 (7.350-7.450); BG PO2 62.8 mmHg (75.0-100.0); BG VENT MODE T PIECE
[2021-11-01] MEDS: KCL 20MEQ/100ML X 2 FOR TOTAL KCL 40MEQ/200ML IV SCH ×2 (18:40→21:28)
[2021-11-01] MEDS: ACETAMINOPHEN 325MG TABLET PO PRN (19:19)
[2021-11-01 20:55] LABS: HEMATOCRIT 26.3 % (36.0-48.0); HEMOGLOBIN 9.4 g/dL (12.0-16.0)
[2021-11-01] MEDS: LORAZEPAM 0.5MG TABLET PO PRN (21:37)
[2021-11-02] VITALS: BP 160/99
[2021-11-02 04:00] VITALS: BP 183/80
[2021-11-02] MEDS: ONDANSETRON HCL 4MG/2ML INJ IV PRN ×2 (07:05→22:50)
[2021-11-02] MEDS: DIPHENHYDRAMINE 50MG/ML VIAL IV PRN ×2 (07:05→22:50)
[2021-11-02 07:09] LABS: BASOPHILS % 0.2 % (0.0-2.0); EOSINOPHILS % 2.2 % (0.0-5.0); HEMATOCRIT. 23.8 % (36.0-48.0); HEMOGLOBIN. 8.4 g/dL (12.0-16.0); LYMPHOCYTES % 11.7 % (20.0-50.0); MEAN CORPUSCULAR VOLUME 93.9 fL (81.0-99.0); MEAN PLATELET VOLUME 7.4 fl (7.4-10.4); MONOCYTES % 7.4 % (2.0-8.0); NEUTROPHILS % 78.5 % (40.0-76.0); PLATELET 119 x1000/uL (130-400); RED BLOOD CELL COUNT 2.54 mill/uL (4.2-5.4); RED CELL DISTRIBUTION WIDTH 22.1 % (11.6-14.6)
[2021-11-02 07:11] LABS: INR 1.4; PROTHROMBIN TIME 14.6 sec (9.6-11.0)
[2021-11-02] MEDS: BLOOD SUGAR DIAGNOSTIC STRIP TEST SCH ×4 (07:30→21:47)
[2021-11-02 07:33] LABS: CHLORIDE 99 mEq/L (98-107)
[2021-11-02 08:00] VITALS: BP 184/92
[2021-11-02] MEDS: INSULIN LISPRO 100 UNITS/ML SUBCUT SCH ×4 (08:00→21:00)
[2021-11-02] MEDS: AMLODIPINE 5MG TABLET PO SCH ×2 (09:00→21:47)
[2021-11-02] MEDS: ISOSORBIDE DINITRATE 20MG TABLET PO SCH ×2 (09:00→17:51)
[2021-11-02] MEDS: CARVEDILOL 6.25 MG TABLET PO SCH (09:00)
[2021-11-02] MEDS: SPIRONOLACTONE 25MG TABLET PO SCH (09:00)
[2021-11-02] MEDS: PIPERACILLIN/TAZOBACTAM 3.375 G in DEXTROSE 5% WATER 50 ML IV SCH (09:22)
[2021-11-02] MEDS: PANTOPRAZOLE SODIUM 40 MG/VIAL IV SCH ×2 (09:23→21:45)
[2021-11-02] MEDS: FUROSEMIDE 40MG/4ML VIAL IVP SCH (09:23)
[2021-11-02] MEDS: HYDRALAZINE 20MG/ML VIAL IV PRN ×2 (09:24→17:51)
[2021-11-02] MEDS ORDERED: LIDOCAINE HCL 1% 10 MG/ML 10ML VIAL ONE (10:23)
[2021-11-02] MEDS ORDERED: PROPOFOL 200MG/20ML VIAL IV ONE (10:23)
[2021-11-02] MEDS ORDERED: DEXAMETHASONE 4MG/ML 1ML VIAL ONE (10:23)
[2021-11-02] MEDS ORDERED: ONDANSETRON HCL 4MG/2ML INJ ONE (10:23)
[2021-11-02 10:33] LABS: PLATELET ESTIMATE DECREASED
[2021-11-02 12:20] VITALS: BP 194/85
[2021-11-02] MEDS ORDERED: HYDRALAZINE 20MG/ML VIAL IV NR ×2 (12:20→12:30)
[2021-11-02 12:44] LABS: HEMATOCRIT 24.9 % (36.0-48.0)
[2021-11-02] MEDS ORDERED: HYDRALAZINE HCL 50MG TABLET PO SCH (14:00)
[2021-11-02] MEDS ORDERED: POTASSIUM CHLORIDE 20MEQ TABLET SR PO NR (15:45)
[2021-11-02 15:54] VITALS: BP 171/84
[2021-11-02 20:00] VITALS: BP 153/99
[2021-11-02] MEDS: HYDRALAZINE HCL 50MG TABLET PO SCH (21:47)
[2021-11-02 22:08] LABS: HEPATITIS B SURFACE ANTIGEN NEGATIVE
[2021-11-03] VITALS (10 sets, daily range): BP systolic 153–193; BP diastolic 76–110
[2021-11-03] MEDS: HYDRALAZINE 20MG/ML VIAL IV PRN ×3 (02:38→22:43)
[2021-11-03] MEDS: HYDRALAZINE HCL 50MG TABLET PO SCH ×2 (05:29→13:46)
[2021-11-03 07:13] LABS: HEMATOCRIT 24.6 % (36.0-48.0); HEMOGLOBIN 8.5 g/dL (12.0-16.0); MEAN CORPUSCULAR HEMOGLOBIN 32.6 pg (28.0-32.0); MEAN CORPUSCULAR VOLUME 94.3 fL (81.0-99.0); PLATELET 128 x1000/uL (130-400); RED BLOOD CELL COUNT 2.61 mill/uL (4.2-5.4); RED CELL DISTRIBUTION WIDTH 21.3 % (11.6-14.6)
[2021-11-03] MEDS: BLOOD SUGAR DIAGNOSTIC STRIP TEST SCH ×4 (07:30→20:25)
[2021-11-03] MEDS: INSULIN LISPRO 100 UNITS/ML SUBCUT SCH ×4 (08:00→20:25)
[2021-11-03] MEDS: SPIRONOLACTONE 25MG TABLET PO SCH (08:49)
[2021-11-03] MEDS: PANTOPRAZOLE SODIUM 40 MG/VIAL IV SCH ×2 (08:49→20:23)
[2021-11-03] MEDS: AMLODIPINE 5MG TABLET PO SCH ×2 (08:49→20:24)
[2021-11-03] MEDS: ISOSORBIDE DINITRATE 20MG TABLET PO SCH ×2 (08:49→17:28)
[2021-11-03] MEDS: FUROSEMIDE 40MG/4ML VIAL IVP SCH (08:49)
[2021-11-03] MEDS ORDERED: POTASSIUM CHLORIDE 20MEQ/PACKET PO NR (09:30)
[2021-11-03 11:36] LABS: HEMATOCRIT 26.1 % (36.0-48.0); HEMOGLOBIN 8.9 g/dL (12.0-16.0)
[2021-11-03] MEDS: CARVEDILOL 3.125 MG TABLET PO SCH ×2 (12:15→20:24)
[2021-11-03] MEDS: HYDRALAZINE HCL 100MG TABLET PO SCH (22:28)
[2021-11-04] VITALS (10 sets, daily range): BP systolic 133–187; BP diastolic 38–111
[2021-11-04] MEDS: CLONIDINE 0.1MG TABLET PO PRN (02:13)
[2021-11-04] MEDS: ACETAMINOPHEN 325MG TABLET PO PRN (04:13)
[2021-11-04] MEDS ORDERED: LOSARTAN POTASSIUM 50 MG TABLET PO NR (04:30)
[2021-11-04] MEDS: HYDRALAZINE HCL 100MG TABLET PO SCH ×4 (05:03→21:50)
[2021-11-04 06:22] LABS: BASOPHILS % 0.1 % (0.0-2.0); EOSINOPHILS % 0.8 % (0.0-5.0); HEMATOCRIT. 24.9 % (36.0-48.0); HEMOGLOBIN. 8.6 g/dL (12.0-16.0); LYMPHOCYTES % 9.2 % (20.0-50.0); MEAN CORPUSCULAR HEMOGLOBIN 32.9 pg (28.0-32.0); MEAN CORPUSCULAR VOLUME 94.7 fL (81.0-99.0); MEAN PLATELET VOLUME 7.4 fl (7.4-10.4); MONOCYTES % 7.8 % (2.0-8.0); NEUTROPHILS % 82.1 % (40.0-76.0); PLATELET 124 x1000/uL (130-400); RED BLOOD CELL COUNT 2.63 mill/uL (4.2-5.4); RED CELL DISTRIBUTION WIDTH 21.4 % (11.6-14.6)
[2021-11-04] MEDS: BLOOD SUGAR DIAGNOSTIC STRIP TEST SCH ×4 (07:30→21:51)
[2021-11-04] MEDS: INSULIN LISPRO 100 UNITS/ML SUBCUT SCH ×4 (08:00→21:00)
[2021-11-04] MEDS ORDERED: LOSARTAN POTASSIUM 50 MG TABLET PO SCH (09:00)
[2021-11-04] MEDS ORDERED: POTASSIUM CHLORIDE 20MEQ TABLET SR PO SCH (09:00)
[2021-11-04] MEDS ORDERED: LOSARTAN POTASSIUM 25 MG TABLET PO SCH ×2 (09:00)
[2021-11-04] MEDS: PANTOPRAZOLE SODIUM 40 MG/VIAL IV SCH ×2 (09:14→21:51)
[2021-11-04] MEDS: ISOSORBIDE DINITRATE 20MG TABLET PO SCH ×2 (09:15→18:02)
[2021-11-04] MEDS: SPIRONOLACTONE 25MG TABLET PO SCH (09:15)
[2021-11-04] MEDS: FUROSEMIDE 40MG/4ML VIAL IVP SCH (09:15)
[2021-11-04] MEDS: AMLODIPINE 5MG TABLET PO SCH ×2 (09:15→21:51)
[2021-11-04] MEDS: CARVEDILOL 3.125 MG TABLET PO SCH ×2 (09:16→21:51)
[2021-11-04] MEDS: LOSARTAN POTASSIUM 50 MG TABLET PO SCH (21:50)
[2021-11-05] VITALS: BP 151/67
[2021-11-05 04:00] VITALS: BP 158/78
[2021-11-05] MEDS: HYDRALAZINE HCL 100MG TABLET PO SCH ×3 (05:13→22:07)
[2021-11-05 07:03] LABS: BASOPHILS % 0.1 % (0.0-2.0); EOSINOPHILS % 0.8 % (0.0-5.0); HEMATOCRIT. 27.5 % (36.0-48.0); HEMOGLOBIN. 9.5 g/dL (12.0-16.0); LYMPHOCYTES % 8.8 % (20.0-50.0); MEAN CORPUSCULAR VOLUME 95.6 fL (81.0-99.0); MEAN PLATELET VOLUME 7.6 fl (7.4-10.4); MONOCYTES % 6.4 % (2.0-8.0); NEUTROPHILS % 83.9 % (40.0-76.0); PLATELET 119 x1000/uL (130-400); RED BLOOD CELL COUNT 2.87 mill/uL (4.2-5.4)
[2021-11-05] MEDS: BLOOD SUGAR DIAGNOSTIC STRIP TEST SCH ×4 (07:30→21:00)
[2021-11-05 07:44] VITALS: BP 142/76
[2021-11-05] MEDS: INSULIN LISPRO 100 UNITS/ML SUBCUT SCH ×4 (08:00→21:00)
[2021-11-05] MEDS: SPIRONOLACTONE 25MG TABLET PO SCH (08:21)
[2021-11-05] MEDS: LOSARTAN POTASSIUM 50 MG TABLET PO SCH ×2 (08:21→21:27)
[2021-11-05] MEDS: AMLODIPINE 5MG TABLET PO SCH ×2 (08:21→21:27)
[2021-11-05] MEDS: CARVEDILOL 3.125 MG TABLET PO SCH ×2 (08:22→21:27)
[2021-11-05] MEDS: PANTOPRAZOLE SODIUM 40 MG/VIAL IV SCH ×2 (08:22→21:28)
[2021-11-05] MEDS: ISOSORBIDE DINITRATE 20MG TABLET PO SCH ×2 (08:22→17:15)
[2021-11-05] MEDS: FUROSEMIDE 40MG/4ML VIAL IVP SCH (08:22)
[2021-11-05 12:43] VITALS: BP 174/94
[2021-11-05] MEDS: CLONIDINE 0.1MG TABLET PO PRN (13:49)
[2021-11-05] MEDS: CLONIDINE 0.2MG TABLET PO SCH ×2 (14:00→23:51)
[2021-11-05 15:43] VITALS: BP 167/90
[2021-11-05] MEDS: LACTULOSE 20G/30ML UDC PO SCH ×2 (17:15→22:06)
[2021-11-05 20:00] VITALS: BP 155/91
[2021-11-06] VITALS (7 sets, daily range): BP systolic 138–182; BP diastolic 70–96
[2021-11-06] MEDS: HYDRALAZINE HCL 100MG TABLET PO SCH ×3 (05:56→21:37)
[2021-11-06] MEDS: LACTULOSE 20G/30ML UDC PO SCH ×3 (05:56→23:15)
[2021-11-06] MEDS: CLONIDINE 0.2MG TABLET PO SCH ×3 (05:57→23:14)
[2021-11-06 07:04] LABS: BASOPHILS % 0.3 % (0.0-2.0); EOSINOPHILS % 1.5 % (0.0-5.0); HEMATOCRIT. 24.8 % (36.0-48.0); HEMOGLOBIN. 8.8 g/dL (12.0-16.0); LYMPHOCYTES % 10.6 % (20.0-50.0); MEAN CORPUSCULAR HEMOGLOBIN 33.9 pg (28.0-32.0); MEAN CORPUSCULAR VOLUME 95.4 fL (81.0-99.0); MEAN PLATELET VOLUME 7.6 fl (7.4-10.4); MONOCYTES % 7.5 % (2.0-8.0); NEUTROPHILS % 80.1 % (40.0-76.0); PLATELET 112 x1000/uL (130-400)
[2021-11-06] MEDS: BLOOD SUGAR DIAGNOSTIC STRIP TEST SCH ×4 (07:30→21:35)
[2021-11-06] MEDS: INSULIN LISPRO 100 UNITS/ML SUBCUT SCH ×4 (08:00→21:00)
[2021-11-06] MEDS: LOSARTAN POTASSIUM 50 MG TABLET PO SCH (08:58)
[2021-11-06] MEDS: FUROSEMIDE 40MG/4ML VIAL IVP SCH (08:58)
[2021-11-06] MEDS: PANTOPRAZOLE SODIUM 40 MG/VIAL IV SCH ×2 (08:58→21:34)
[2021-11-06] MEDS: AMLODIPINE 5MG TABLET PO SCH ×2 (08:59→21:35)
[2021-11-06] MEDS: SPIRONOLACTONE 25MG TABLET PO SCH (08:59)
[2021-11-06] MEDS: CARVEDILOL 3.125 MG TABLET PO SCH ×2 (08:59→21:35)
[2021-11-06] MEDS: ISOSORBIDE DINITRATE 20MG TABLET PO SCH ×2 (08:59→17:50)
[2021-11-06] MEDS ORDERED: POTASSIUM CHLORIDE 20MEQ/PACKET PO NR (11:15)
[2021-11-06] MEDS ORDERED: MAGNESIUM 1 G PREMIX 100 ML IV NR (13:00)
[2021-11-07] VITALS (7 sets, daily range): BP systolic 119–169; BP diastolic 62–100
[2021-11-07] MEDS: HYDRALAZINE HCL 100MG TABLET PO SCH ×3 (05:21→21:33)
[2021-11-07] MEDS: LACTULOSE 20G/30ML UDC PO SCH ×3 (05:21→21:32)
[2021-11-07] MEDS: CLONIDINE 0.2MG TABLET PO SCH ×3 (05:21→21:32)
[2021-11-07 05:33] LABS: BASOPHILS % 0.1 % (0.0-2.0); EOSINOPHILS % 3.2 % (0.0-5.0); HEMATOCRIT. 26.4 % (36.0-48.0); HEMOGLOBIN. 9.2 g/dL (12.0-16.0); LYMPHOCYTES % 10.9 % (20.0-50.0); MEAN CORPUSCULAR HEMOGLOBIN 32.8 pg (28.0-32.0); MEAN CORPUSCULAR VOLUME 94.3 fL (81.0-99.0); MEAN PLATELET VOLUME 7.7 fl (7.4-10.4); MONOCYTES % 6.7 % (2.0-8.0); NEUTROPHILS % 79.1 % (40.0-76.0); PLATELET 141 x1000/uL (130-400)
[2021-11-07] MEDS: INSULIN LISPRO 100 UNITS/ML SUBCUT SCH ×4 (08:00→21:00)
[2021-11-07] MEDS: CARVEDILOL 3.125 MG TABLET PO SCH ×2 (08:17→21:33)
[2021-11-07] MEDS: SPIRONOLACTONE 25MG TABLET PO SCH (08:17)
[2021-11-07] MEDS: AMLODIPINE 5MG TABLET PO SCH ×2 (08:18→21:33)
[2021-11-07] MEDS: PANTOPRAZOLE SODIUM 40 MG/VIAL IV SCH ×2 (08:18→21:32)
[2021-11-07] MEDS: BLOOD SUGAR DIAGNOSTIC STRIP TEST SCH ×4 (08:18→21:33)
[2021-11-07] MEDS: FUROSEMIDE 40MG/4 ML UDC PO SCH (08:18)
[2021-11-07] MEDS: ISOSORBIDE DINITRATE 20MG TABLET PO SCH ×2 (08:18→18:05)
[2021-11-07] MEDS ORDERED: POTASSIUM CHLORIDE 20MEQ TABLET SR PO SCH (11:15)
[2021-11-07] MEDS: CLONIDINE 0.1MG TABLET PO PRN (15:51)
[2021-11-08] VITALS (7 sets, daily range): BP systolic 135–157; BP diastolic 55–77
[2021-11-08] MEDS: HYDRALAZINE HCL 100MG TABLET PO SCH ×3 (05:17→21:10)
[2021-11-08] MEDS: LACTULOSE 20G/30ML UDC PO SCH ×3 (05:17→21:08)
[2021-11-08] MEDS: CLONIDINE 0.2MG TABLET PO SCH ×3 (05:17→21:15)
[2021-11-08 05:35] LABS: BASOPHILS % 0.1 % (0.0-2.0); EOSINOPHILS % 3.3 % (0.0-5.0); HEMATOCRIT. 25.6 % (36.0-48.0); HEMOGLOBIN. 8.8 g/dL (12.0-16.0); LYMPHOCYTES % 13.8 % (20.0-50.0); MEAN CORPUSCULAR HEMOGLOBIN 32.7 pg (28.0-32.0); MEAN CORPUSCULAR VOLUME 95.2 fL (81.0-99.0); MONOCYTES % 7.7 % (2.0-8.0); NEUTROPHILS % 75.1 % (40.0-76.0); PLATELET 149 x1000/uL (130-400); RED BLOOD CELL COUNT 2.68 mill/uL (4.2-5.4); RED CELL DISTRIBUTION WIDTH 21.3 % (11.6-14.6)
[2021-11-08] MEDS: INSULIN LISPRO 100 UNITS/ML SUBCUT SCH ×4 (08:00→21:00)
[2021-11-08] MEDS: BLOOD SUGAR DIAGNOSTIC STRIP TEST SCH ×4 (08:13→21:11)
[2021-11-08] MEDS: AMLODIPINE 5MG TABLET PO SCH ×2 (08:20→21:09)
[2021-11-08] MEDS: SPIRONOLACTONE 25MG TABLET PO SCH (08:20)
[2021-11-08] MEDS: FUROSEMIDE 40MG/4 ML UDC PO SCH (08:20)
[2021-11-08] MEDS: ISOSORBIDE DINITRATE 20MG TABLET PO SCH ×2 (08:20→17:14)
[2021-11-08] MEDS: PANTOPRAZOLE SODIUM 40 MG/VIAL IV SCH ×2 (08:20→21:08)
[2021-11-08] MEDS: CARVEDILOL 3.125 MG TABLET PO SCH ×2 (08:20→21:09)
[2021-11-08] MEDS ORDERED: POTASSIUM CHLORIDE 20MEQ TABLET SR PO NR (11:15)
[2021-11-08] MEDS: CLONIDINE 0.1MG TABLET PO PRN ×2 (21:10→21:12)
[2021-11-09] VITALS: BP 168/128
[2021-11-09 04:00] VITALS: BP 177/70
[2021-11-09] MEDS: HYDRALAZINE HCL 100MG TABLET PO SCH ×2 (06:11→13:02)
[2021-11-09] MEDS: CLONIDINE 0.2MG TABLET PO SCH ×2 (06:11→13:03)
[2021-11-09] MEDS: LACTULOSE 20G/30ML UDC PO SCH ×2 (06:11→13:01)
[2021-11-09 07:06] LABS: BASOPHILS % 0.5 % (0.0-2.0); HEMATOCRIT. 27.4 % (36.0-48.0); HEMOGLOBIN. 9.4 g/dL (12.0-16.0); LYMPHOCYTES % 13.2 % (20.0-50.0); MEAN CORPUSCULAR HEMOGLOBIN 32.5 pg (28.0-32.0); MEAN CORPUSCULAR VOLUME 94.9 fL (81.0-99.0); MONOCYTES % 7.9 % (2.0-8.0); NEUTROPHILS % 75.4 % (40.0-76.0); PLATELET 137 x1000/uL (130-400); RED BLOOD CELL COUNT 2.89 mill/uL (4.2-5.4)
[2021-11-09 08:00] VITALS: BP 155/77
[2021-11-09] MEDS: INSULIN LISPRO 100 UNITS/ML SUBCUT SCH ×2 (08:00→12:31)
[2021-11-09] MEDS: BLOOD SUGAR DIAGNOSTIC STRIP TEST SCH ×2 (08:21→12:31)
[2021-11-09] MEDS: SPIRONOLACTONE 25MG TABLET PO SCH (08:31)
[2021-11-09] MEDS: CARVEDILOL 3.125 MG TABLET PO SCH (08:31)
[2021-11-09] MEDS: PANTOPRAZOLE SODIUM 40 MG/VIAL IV SCH (08:31)
[2021-11-09] MEDS: ISOSORBIDE DINITRATE 20MG TABLET PO SCH (08:32)
[2021-11-09] MEDS: FUROSEMIDE 40MG/4 ML UDC PO SCH (08:32)
[2021-11-09] MEDS: AMLODIPINE 5MG TABLET PO SCH (08:32)
[2021-11-09] MEDS ORDERED: POTASSIUM CHLORIDE 20MEQ TABLET SR PO SCH (09:00)
[2021-11-09 12:00] VITALS: BP 160/75
[2021-11-09 13:14] VITALS: BP 145/75
[2021-11-09] MEDS ORDERED: SODIUM BICARBONATE 4% (2.4MEQ) 5ML VIAL IV ONE (13:44)
== END 2021-11-09 18:17 | DRG 432 ==
LOC: ER 10:54 → 5EST 15:48 → SUPCPDRO 16:43 → ENRESERV 19:07
PROVIDERS: ADMIT Internal Medicine; ATTEND Internal Medicine
PROC: 02HV33Z Insertion of Infusion Device into Superior Vena Cava, Percutaneous Approach (ICD-10-PCS; 2021-10-31)
PROC: B518ZZA Fluoroscopy of Superior Vena Cava, Guidance (ICD-10-PCS; 2021-10-31)
PROC: B548ZZA Ultrasonography of Superior Vena Cava, Guidance (ICD-10-PCS; 2021-10-31)
PROC: 30233N1 Transfusion of Nonautologous Red Blood Cells into Peripheral Vein, Percutaneous Approach (ICD-10-PCS; 2021-10-31)
PROC: 0W9G3ZZ Drainage of Peritoneal Cavity, Percutaneous Approach (ICD-10-PCS; 2021-11-01)
PROC: 0DB78ZX Excision of Stomach, Pylorus, Via Natural or Artificial Opening Endoscopic, Diagnostic (ICD-10-PCS; principal; 2021-11-02)
PROC: 0W9G3ZZ Drainage of Peritoneal Cavity, Percutaneous Approach (ICD-10-PCS; 2021-11-09)
DX: K70.31 Alcoholic cirrhosis of liver with ascites (principal); I21.4 Non-ST elevation (NSTEMI) myocardial infarction; I50.43 Acute on chronic combined systolic (congestive) and diastolic (congestive) heart failure; G93.40 Encephalopathy, unspecified; I13.0 Hypertensive heart and chronic kidney disease with heart failure and stage 1 through stage 4 chronic kidney disease, or unspecified chronic kidney disease; I31.3 Pericardial effusion (noninflammatory); K76.6 Portal hypertension; M48.55XA Collapsed vertebra, not elsewhere classified, thoracolumbar region, initial encounter for fracture; N17.9 Acute kidney failure, unspecified; D68.9 Coagulation defect, unspecified; E03.9 Hypothyroidism, unspecified; E11.22 Type 2 diabetes mellitus with diabetic chronic kidney disease; E66.9 Obesity, unspecified; E78.5 Hyperlipidemia, unspecified; E83.51 Hypocalcemia; E87.6 Hypokalemia; I27.20 Pulmonary hypertension, unspecified; K44.9 Diaphragmatic hernia without obstruction or gangrene; N18.9 Chronic kidney disease, unspecified; D53.9 Nutritional anemia, unspecified; R00.1 Bradycardia, unspecified; Z20.822 Contact with and (suspected) exposure to COVID-19; E78.00 Pure hypercholesterolemia, unspecified; K29.30 Chronic superficial gastritis without bleeding; R79.89 Other specified abnormal findings of blood chemistry; D69.6 Thrombocytopenia, unspecified; K31.89 Other diseases of stomach and duodenum; F10.10 Alcohol abuse, uncomplicated; Y90.9 Presence of alcohol in blood, level not specified; F41.9 Anxiety disorder, unspecified; Z79.84 Long term (current) use of oral hypoglycemic drugs; Z86.73 Personal history of transient ischemic attack (TIA), and cerebral infarction without residual deficits; Z90.49 Acquired absence of other specified parts of digestive tract; Z88.8 Allergy status to other drugs, medicaments and biological substances; Z79.899 Other long term (current) drug therapy; Z79.890 Hormone replacement therapy; Z68.24 Body mass index [BMI] 24.0-24.9, adult
CPT/HCPCS: 36415; 36573; 36600; 49083; 71045; 74176; 76604; 76700; 76705; 80048; 80053; 80061; 80076; 80305; 81003; 82040; 82140; 82330; 82375; 82550; 82553; 82607; 82728; 82746; 82805; 82962; 83036; 83540; 83550; 83615; 83735; 83880; 84132; 84439; 84443; 84478; 84484; 85014; 85018; 85025; 85027; 85044; 86705; 86709; 86803; 86850; 86900; 86920; 87340; 87426; 88305; 88312; 88313; 93005; 93306; 93970; 97162; 97530; 99291; A6261; C1725; C1769; C1893; C9113; J0360; J1100; J1200; J1815; J1940; J2405; J2543; J2704; J3475; J3480; J3490; J7040; J7060; P9016